=== PATIENT | female | born 1990 | race Two or more races ===

== ENCOUNTER 2025-07-11 10:39 | Emergency (ER) | payer BC, SELFPAY ==
[2025-07-11 10:40] VITALS: BMI 29.6
--- NOTE | 2025-07-11 11:12 | EKG_ITS ---
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
[2025-07-11 11:13] VITALS: BP 195/125; BP 201/120; PULSE 87; RESP 18; TEMP 36.9; O2SAT 99
--- NOTE | 2025-07-11 11:13 | PD.EDRME ---
Rapid Medical Screening Exam RME Arrival date/time: 07/11/25 10:39 35-year-old female with no known medical history presents to the emergency room with a chief complaint of a headache x 2 days. Patient states she was sent over by her primary care provider due multiple elevated blood pressure readings. I have greeted and performed a focused initial assessment of this patient. A comprehensive ED assessment and evaluation of the patient, analysis of all test results, and completion of the medical decision making process will be conducted by additional ED providers. Chief Complaint: General Adult/Misc Complain Time Seen by Provider: 07/11/25 11:06 Vital signs reviewed by provider: Yes Exam: Patient has a strong and regular rhythm S1 and S2 noted Patient has clear bilateral lung sounds no wheezing or any abnormal breath sounds Clinical Impression: Hypertensive urgency/hypertensive emergency
[2025-07-11] MEDS: ACETAMINOPHEN 325 MG TABLET 650 MG PO (11:16)
[2025-07-11 11:22] VITALS: BP 177/111; PULSE 84
[2025-07-11 11:57] LABS: Basophils # (Auto) 0.0 Thou/mm3 (0.0-0.2); Basophils % (Auto) 0 % (0-2.5); Eosinophils # (Auto) 0.1 Thou/mm3 (0.0-0.5); Eosinophils % (Auto) 1 % (0-10); Hematocrit 39.7 % (36.0-46.0); Hemoglobin 12.7 g/dL (12.0-16.0); Immature Granulocytes Auto 0.01 Thou/mm3 (0.00-0.00); Lymphocytes # (Auto) 1.6 Thou/mm3 (1.0-4.8); Lymphocytes % (Auto) 28 % (10-50); Mean Corpuscular HGB Conc 32.0 g/dl (31.0-37.0); Mean Corpuscular Hemoglobin 28.9 pg (25.0-35.0); Mean Corpuscular Volume 90 fL (80-100); Monocytes # (Auto) 0.6 Thou/mm3 (0.0-0.8); Monocytes % (Auto) 11 % (0-12); Neutrophils # (Auto) 3.4 Thou/mm3 (1.8-7.7); Neutrophils % (Auto) 60 % (37-80); Nucleated Red Blood Cell # 0.00 Thou/mm3 (0.00-0.00); Nucleated Red Blood Cell % 0 /100 WBC (0); Platelet Count 185 Thou/mm3 (140-440); RDW Standard Deviation 50.3 fL (36.4-46.3); Red Blood Count 4.39 Miln/mm3 (4.00-5.20); White Blood Count 5.6 Thou/mm3 (3.6-11.0)
[2025-07-11 12:12] LABS: INR 1.0 (0.9-1.3); Partial Thromboplastin Time 29.9 Seconds (22.0-36.0); Prothrombin Time 10.9 Seconds (9.0-12.2)
[2025-07-11 12:15] LABS: B-Type Natriuretic Peptide 47 pg/mL (0-100)
[2025-07-11 12:17] LABS: Alanine Aminotransferase 26 U/L (10-49); Albumin, Serum 4.5 gm/dL (3.5-5.0); Albumin/Globulin Ratio 1.6 (1.2-2.2); Alkaline Phosphatase 63 U/L (46-116); Anion Gap 10 (7-16); Aspartate Amino Transferase 15 U/L (0-34); BUN/Creatinine Ratio 7 Ratio (12-20); Bilirubin,Total 0.5 mg/dL (0.3-1.2); Blood Urea Nitrogen < 5 mg/dL (9-23); Calcium 9.3 mg/dL (8.3-10.6); Calcium (Corrected) 9.3 mg/dL (8.5-10.1); Carbon Dioxide 23.5 mMol/L (20.0-31.0); Chloride 103 mMol/L (98-107); Creatinine (Component) 0.7 mg/dL (0.6-1.3); Estimated Creatinine Clearance 99.3 mL/min (>60); Globulin 2.9 gm/dL (2.3-3.5); Glucose 183 mg/dL (74-106); Magnesium 1.8 mg/dL (1.6-2.6); Osmolality,Calculated 274 (275-295); Potassium 4.4 mMol/L (3.4-5.1); Sodium 136 mMol/L (136-145); Total Protein 7.4 gm/dL (5.7-8.2); Troponin I < 0.002 ng/mL (0.0-0.045); eGFR > 60 See Note
[2025-07-11 12:44] LABS: Collection Type, Urine Clean Catch
[2025-07-11 12:52] LABS: Bilirubin,Urine Negative (Negative); Blood,Urine Trace (Negative); Clarity,Urine Clear (Clear/Hazy); Color,Urine Lt-Yellow (Lt Yel-Yel); Culture Indicated,Urine Not Indicated; Glucose, Urine Negative (Negative); Hyaline Casts,Urine < 1 /hpf (0-1); Ketones,Urine Negative (Negative); Leukocyte Esterase,Urine Negative (Negative); Nitrite,Urine Negative (Negative); PH,Urine 6.0 (5.0-7.0); Protein,Urine Trace (Neg - Trace); RBC,Urine 2 /hpf (0-3); Specific Gravity,Urine 1.023 (1.001-1.035); Squamous Epithelial Cell,Urine 4 /hpf (0-5); Urobilinogen,Urine Negative mg/dL (0.0-1.0); WBC,Urine 1 /hpf (0-5)
[2025-07-11 13:00] VITALS: BP 164/103; PULSE 73; RESP 14; TEMP 36.9; O2SAT 100
--- NOTE | 2025-07-11 13:34 | PD.EDHA ---
ED Headache RME/HPI General Chief Complaint: General Adult/Misc Complain Stated Complaint: HIGH B/P, SENT FROM CLINIC Time Seen by Provider: 07/11/25 11:06 Arrival date/time: 07/11/25 10:39 Limitations: no limitations RME / HPI RME / HPI Narrative: 07/11/25 10:39 35-year-old female with no known medical history presents to the emergency room with a chief complaint of a headache x 2 days. Patient states she was sent over by her primary care provider due multiple elevated blood pressure readings. I have greeted and performed a focused initial assessment of this patient. A comprehensive ED assessment and evaluation of the patient, analysis of all test results, and completion of the medical decision making process will be conducted by additional ED providers. DR. FU MAIN ED EVALUATION: 35 year old female with history of hypertension presents to the ED for evaluation of headache beginning 3 days ago. Described as a throbbing sensation that is worse to the top and base of head, rating as moderate. States her pain is worse with bending over. States she consulted her PCP today for the headache. While in office noted to have elevated blood pressure and sent here for further evaluation. Patient mentioned she was first diagnosed with hypertension 2 years ago and had taken medications for a total of 1-2 months. No other associated symptoms reported. Denies weakness, fevers, chills, chest pain, cough, shortness of breath, abdominal pain, n/v/d, or urinary symptoms. Exam: Patient has a strong and regular rhythm S1 and S2 noted Patient has clear bilateral lung sounds no wheezing or any abnormal breath sounds Impression: Hypertensive urgency/hypertensive emergency Related Data Allergies Allergy/AdvReac Type Severity Reaction Status Date / Time No Known Allergies Allergy Verified 07/11/25 10:42 Review of Systems Review of Systems Systems Reviewed: All systems reviewed, normal except as documented Past Medical History Past Medical History CARDIAC: Positive Hypertension Surgical History SURGICAL: Positive Section Social History SMOKING STATUS: Never smoker ED Exam General Limitations: Present no limitations General appearance: Present alert and in no apparent distress Head Head exam: Present atraumatic, normocephalic and normal inspection Eye Eye exam: Present normal appearance, PERRL and EOMI ENT ENT exam: Present normal exam, normal oropharynx and mucous membranes moist Neck Neck exam: Present normal inspection, full ROM and trachea midline Chest Chest inspection: Present normal inspection and symmetric chest wall rise Respiratory Respiratory exam: Present normal lung sounds bilaterally Cardiovascular Cardiovascular exam: Present regular rate, normal rhythm and normal heart sounds Abdominal Exam Abdominal exam: Present soft and normal bowel sounds Extremities Exam Extremities exam: Present normal inspection and full ROM Back Exam Back exam: Present normal inspection and full ROM Neurological Exam Neurological exam: Present alert, oriented X3 and CN II-XII intact Psychiatric Psychiatric exam: Present normal affect and normal mood Skin Skin exam: Present warm, dry, intact and normal color Course Quality Measures none Orders Category Date Time Status EKG (ED ONLY) *Do not use* NOW Care 07/11/25 11:12 Completed EKG (ED Only) Stat Exams 07/11/25 11:12 Draft B-Type Natriuretic Peptide Stat Lab 07/11/25 11:29 Completed CBC Stat Lab 07/11/25 11:29 Completed Comprehensive Metabolic Panel Stat Lab 07/11/25 11:29 Completed Magnesium Stat Lab 07/11/25 11:29 Completed Partial Thromboplastin Time Stat Lab 07/11/25 11:29 Completed Prothrombin Time with INR Stat Lab 07/11/25 11:29 Completed Troponin I Stat Lab 07/11/25 11:29 Completed Urinalysis, C/S if Indicated Stat Lab 07/11/25 12:15 Completed Acetaminophen Tab [Tylenol Tab] Med 07/11/25 11:13 Discontinued 650 mg PO X1 ONE cloNIDine HCL [Catapres] Med 07/11/25 11:14 Discontinued 0.1 mg PO X1 ONE Vital Signs Vital signs: Vital Signs Temperature 98.5 F 07/11/25 11:13 Pulse Rate 87 07/11/25 11:13 Respiratory Rate 18 07/11/25 11:13 Blood Pressure 195/125 H 07/11/25 11:13 Pulse Oximetry (%) 99 07/11/25 11:13 Oxygen Delivery Method Room Air 07/11/25 11:13 Pulse ox is 99% on room air which is adequate. Headache MDM Narrative MDM Narrative:: Purvi Hairston am scribing for and in the presence of Dr. Fu. Patient data External records reviewed:: [facility] previous records Clinical information provided by:: patient Social determinants that could affect healthcare access:: none Patient has the following chronic illnesses:: Hypertension How is presenting disease/condition affected by chronic disease/condition?: exacerbated by Evaluation data The following diagnostics were reviewed and interpreted by me:: lab results and EKG tracing(s) Lab and/or radiology exams considered but not ordered:: None Interpretation Summary: EKG @ 11:20 AM. Normal sinus rhythm, rate 80, no STEMI. CBC and CMP with no acute findings. UA negative for infection. Medications / Prescriptions Medications or Prescriptions considered but not ordered:: None Medication administrations:: Medication Administration History Discontinued Medications Acetaminophen (Acetaminophen 325 Mg Tablet) 650 mg PO X1 ONE Stop: 07/11/25 11:14 Last Admin: 07/11/25 11:16 Dose: 650 mg Documented By: RAINA Clonidine (Clonidine Hcl 0.1 Mg Tablet) 0.1 mg PO X1 ONE Stop: 07/11/25 11:15 Last Admin: 07/11/25 11:22 Dose: 0.1 mg Documented By: RAINA See above Consultations Consultation(s) initiated? (list below): No Diagnosis Differential diagnosis headache: migraine, tension headache, headache and other (hypertension, hypertensive emergency, hypertensive urgency ) Most likely diagnosis given after review of the tests above:: Tension headache Elevated blood pressure Admission Indicated Admission indicated?: not indicated Admission Request Was there a request for admission?: No Disposition Plan Disposition Plan: Discharge Discharge Attestation Discharge Attestation: The patient and all family members were given an opportunity to ask questions and understood the discharge instructions. Discharge instructions specifically effects, indications for sooner follow up or return to the emergency department, and the expected course of current diagnosis. Patient condition: Stable Discharge Plan Plan Patient Disposition: HOME (Self Care) Patient condition on transfer: Stable Prescriptions/Referrals Referrals: No Primary/Family,Physician [Primary Care Provider] - In 1 week Problem List Clinical Impression: Acute tension headache, Elevated BP without diagnosis of hypertension Patient/Caregiver Discharge Instructions Discharge Activity: activity as tolerated Education Materials: ED Headache, Tension Additional Instructions: Start exercises stretching the neck and the upper back. Consider doing yoga. You can use hot packs and cold packs alternating. Take Tylenol 500 mg 1 to 2 tablets every 6 hours along with Advil gelcaps 200 mg 2 capsules every 6 hours for pain. Follow-up with your doctor in 2 to 3 days to recheck your blood pressure. Print Language: [place] Stand Alone Forms: Sarah Award Info., Patient Portal Info Letter
--- NOTE | 2025-07-11 13:35 | PD.EDRME ---
Rapid Medical Screening Exam RME Arrival date/time: 07/11/25 10:39 07/11/25 10:39 35-year-old female with no known medical history presents to the emergency room with a chief complaint of a headache x 2 days. Patient states she was sent over by her primary care provider due multiple elevated blood pressure readings. I have greeted and performed a focused initial assessment of this patient. A comprehensive ED assessment and evaluation of the patient, analysis of all test results, and completion of the medical decision making process will be conducted by additional ED providers. Chief Complaint: General Adult/Misc Complain Time Seen by Provider: 07/11/25 11:06 Vital signs: Vital Signs Temperature 98.5 F 07/11/25 11:13 Pulse Rate 87 07/11/25 11:13 Respiratory Rate 18 07/11/25 11:13 Blood Pressure 195/125 H 07/11/25 11:13 Pulse Oximetry (%) 99 07/11/25 11:13 Oxygen Delivery Method Room Air 07/11/25 11:13 RME Narrative: 07/11/25 10:39 35-year-old female with no known medical history presents to the emergency room with a chief complaint of a headache x 2 days. Patient states she was sent over by her primary care provider due multiple elevated blood pressure readings. I have greeted and performed a focused initial assessment of this patient. A comprehensive ED assessment and evaluation of the patient, analysis of all test results, and completion of the medical decision making process will be conducted by additional ED providers. Exam: Patient has a strong and regular rhythm S1 and S2 noted Patient has clear bilateral lung sounds no wheezing or any abnormal breath sounds Clinical Impression: Hypertensive urgency/hypertensive emergency
[2025-07-11 14:10] VITALS: BP 147/99; PULSE 65; RESP 19; TEMP 36.8; O2SAT 100
== END 2025-07-11 15:07 | disposition home or self-care (01) ==
PROVIDERS: Emergency Provider Nurse Practitioner Family
DX: I16.1 Hypertensive emergency (principal); G44.209 Tension-type headache, unspecified, not intractable; I10 Essential (primary) hypertension
CPT/HCPCS: 36415; 80053; 81001; 83735; 83880; 84484; 85025; 85610; 85730; 93005; 99282; A9270